=== PATIENT | female | born 1980 | race Caucasian/White ===

== ENCOUNTER 2023-10-23 17:01 | Observation (INO) ==
--- NOTE | 2023-10-23 17:07 | ED Triage Note ---
Date of Service October 23, 2023 Provider in Triage Author: Valdo Prabhakar History of Present Illness This patient was briefly evaluated while in triage. An abbreviated physical exam was performed. This patient is a 43-year-old Female who presents to the ED for evaluation via EMS from work for HTN 190/120 [place], jaw numb, weak, shaky - feels better now here 10/17 for similar symptoms - was diagnosed with MS at that visit on amlodipine, but only had a few doses saw neuro-concern for "ministrokes" rather than MS denies CP or SOB Physical Exam GENERAL: NAD CARDIOVASCULAR: RRR RESPIRATORY: CTA ABDOMEN: BS x 4. Nontender to palpation. NEURO: no facial droop, speech clear, no gross neuro deficits Initial orders for labs and / or imaging were placed and patient was placed in the waiting area until a bed is available. Please see further documentation for the full ED course.
--- NOTE | 2023-10-23 17:46 | XRay Report ---
XR chest 1V not portable CLINICAL HISTORY: Hypertension. COMPARISON STUDY: Chest radiograph April 11, 2012. FINDINGS: Lung volumes are normal. Lungs are clear. There is no pneumothorax or pleural effusion. Car diac size is normal. Mediastinal contours are normal. There is no evidence for pulmonary edema. IMPRESSION: No acute cardiopulmonary findings. ACT 112: Negative or not required by law. Electronically signed by: Grady Mishra M.D. 10/23/2023 5:44 PM
[2023-10-23 18:54] LABS: Basophils # (auto) 0.05 K/uL (0.00-0.20); Basophils % (auto) 0.5 %; Eosinophils # (auto) 0.06 K/uL (0.00-0.50); Eosinophils % (auto) 0.6 %; Hemoglobin 14.5 g/dl (12.0-16.0); Immature Granulocytes # (auto) 0.01 K/uL (0.01-0.20); Immature Granulocytes % (auto) 0.1 %; Lymphocytes # (auto) 1.85 K/uL (1.20-3.40); Mean Corpuscular Hemoglobin 30.5 pg (25.0-34.0); Mean Corpuscular Hgb Conc 35.4 g/dL (32.0-36.0); Mean Corpuscular Volume 86.3 fL (80.0-100.0); Mean Platelet Volume 10.1 fL (9.4-12.4); Monocytes # (auto) 0.69 K/uL (0.11-0.59); Monocytes % (auto) 7.5 %; Neutrophils % (auto) 71.3 %; Platelet Count 417 K/uL (130-400); RDW Coefficient of Variation 12.6 % (11.5-14.5); RDW Standard Deviation 39.8 fL (36.4-46.3); Red Blood Count 4.75 M/uL (4.20-5.40); White Blood Count 9.26 K/ul (4.8-10.8)
[2023-10-23 18:58] LABS: Pregnancy Test, Serum Negative (Negative)
[2023-10-23 19:00] LABS: Alanine Aminotransferase 23 U/L (7-52); Albumin Globulin Ratio 1.4 (0.9-2); Albumin Level 4.6 gm/dl (3.4-5.0); Alkaline Phosphatase 57 U/L (34-104); Anion Gap 10 (3-11); Aspartate Aminotransferase 17 U/L (13-39); BUN Creatinine Ratio 21.7 (10-20); Bilirubin,Total 0.8 mg/dl (0.2-1.0); Blood Urea Nitrogen 13 mg/dl (6-23); Calcium 9.5 mg/dl (8.6-10.3); Carbon Dioxide 20 mmol/L (21-32); Chloride 106 mmol/L (98-107); Est GFR (African American) 129.4 ml/min; Est GFR (Non-African American) 111.6 ml/min; Globulin 3.4 gm/dl (2.5-4.0); Glucose 91 mg/dl (70-99(Fasting)); Potassium 3.4 mmol/L (3.5-5.1); Sodium 136 mmol/L (136-145)
[2023-10-23 19:06] LABS: Troponin I High Sensitivity 6.4 pg/ml (0-14)
--- NOTE | 2023-10-23 19:06 | Emergency Department Note ---
Impression & Plan Numbness of jaw, Hypertension, Hypokalemia ED Provider Note NAME: OCTAVIA LAWLER AGE: 43 SEX: F : 1980 ARRIVES VIA: Ambulance INFORMANT: Patient, ED PROVIDER(S): Gamal Najera MD CHIEF COMPLAINT: Elevated blood pressure, jaw numbness MEDICAL DECISION MAKING: Patient presents due to concern for elevated blood pressure and jaw numbness. IV was established and blood work is obtained. Patient blood work fairly unremarkable with mild hypokalemia noted. After further discussion with the patient I did offer the patient and consider admission given the patient's persistent hypertension and recent neurologic symptoms. The patient is amenable to inpatient treatment at this time. The patient was ordered IV labetalol. I did speak the on-call hospitalist service and the patient was admitted by Dr. Monet. Discussion w/ other healthcare providers: Dr. Patrick inpatient medicine service Prior /Outside records reviewed: I reviewed a neurology visit from October 22, [address] Mcfadden. Patient was seen due to concern for right-sided numbness and hypertension. Differential diagnosis: Benign hypertension, hypertensive emergency, hypertensive emergency/urgency, salt intake, pheochromocytoma, electrolyte abnormality, renal disease as well as other etiologies were entertained. Diagnostics, as interpreted by me: ECG:Normal sinus rhythm, rate of 83, normal intervals, normal axis no ST elevations. No significant change from comparison October 17, 2023. Cardiac monitoring: An order was placed for continuous cardiac monitoring. The monitor shows a rate of 82 with sinus rhythm. Patient was placed on pulse oximetry Medical decision rules: None Imaging studies: I informally interpreted the patient's chest x-ray which does not show obvious pneumonia or pneumothorax with formal report to follow. HPI: Patient presents due to concern for elevated blood pressure and jaw numbness. IV was established and blood was obtained patient does not have any acute neurologic symptoms. Patient was recently seen for possible MS versus TIA and did have a follow-up with neurology yesterday and is scheduled for an LP on Saturday. Patient states that she was at work and felt some bilateral jaw numbness no chest pain or pressure no headache got really worried and concerned and called the ambulance to present for further evaluation treatment and was noted to be hypertensive. Patient states that she did begin taking amlodipine which was prescribed during her most recent ED visit in addition to right-sided numbness and was scheduled for follow-up with a neurologist which she did she yesterday. Patient was advised to increase her amlodipine from 5 to 10 mg. Patient does admit to feeling anxious. Patient denies any weakness. Patient states that she has had some mild residual numbness may be in her right foot since her most recent ED visit but no recent changes. Patient denies any falls or trauma. Patient denies any alcohol tobacco or drug use. PAST MEDICAL HISTORY: See Below PAST SURGICAL HISTORY: See Below SOCIAL HISTORY: See Below HOME MEDICATIONS: See Below ALLERGIES: See Below VITALS: See Below PHYSICAL EXAMINATION: GENERAL: NAD, non-toxic. EYE EXAM: Normal conjunctiva. PERRL, no anisocoria and EOM's grossly intact w/o pain. OROPHARYNX: Moist mucus membranes, grossly normal dentition. NECK: Supple, no nuchal rigidity, no adenopathy, non-tender. No signs of meningismus. FROM of the neck with good chin to chest and neck extension. No stridor. LUNGS: Clear to auscultation. Normal chest wall mechanics. HEART: NSR, no MRG. ABDOMEN: Abdomen soft, non-tender, no masses, no rebound or guarding. BACK: No CVA TTP. SKIN: No rashes and no bruising. UPPER EXTREMITIES: Upper extremities are grossly normal. LOWER EXTREMITIES: Grossly normal, no edema. NEURO EXAM: A&O x3, cranial nerves II-XII grossly intact, normal speech, moves all 4 extremities. Past Med/Surg History Medical History (Updated 10/26/23 @ 11:37 by Gamal Najera MD) Hypertension Surgical History H/O lithotripsy Previous section S/P tonsillectomy Family History Father , age 40 in a motor vehicle accident No problems noted. Mother No problems noted. Social History Smoking Status: Never smoker Tobacco Type: Cigarettes Age Started Using Tobacco: 16; Age Quit Using Tobacco: 30; Cigarettes Per Day: Very light smoker, on and off over this time; Do You Dip or Chew Tobacco: No; Hx Alcohol Use: No Hx Substance Use: No Preferred Language: Panamanian Communication Ability: Effective General Car Supervisor Yard Required: No Beliefs That Will Affect Care: None Current Living Situation: Family current occupational status: employed current occupation: Works at [employer] in the office Feels Safe at Home: Yes Assistive Devices: None Allergies Allergies Allergy/AdvReac Type Severity Reaction Status Date / Time nitrofurantoin AdvReac Mild FLU LIKE Verified 10/23/23 20:00 SYMPTOMS Home Meds Home Medications Medication Instructions Recorded Confirmed amlodipine 5 mg tablet 10 mg PO DAILY 10/23/23 10/25/23 Previous Rx's Medication Instructions Recorded aspirin 81 mg chewable tablet 81 mg PO DAILY 30 days #30 tabs 10/24/23 (Tello Chewable Low Dose Aspirin) lisinopril 10 mg tablet 10 mg PO BID 30 days #60 tabs 10/24/23 Results & Data (ED) Vital Signs Vital Signs - 24 hr 10/23/23 17:05 10/23/23 19:15 10/23/23 19:15 Temperature 36.6 C Temperature Source Temporal Artery Scan Pulse Rate 79 83 Pulse Rate [Apical] 84 Respiratory Rate 16 18 Respiratory Effort / Characteristics Non-Labored Spontaneous Non-Labored Spontaneous Respiratory Depth Normal Normal Respiratory Pattern Regular Blood Pressure 217/133 H Blood Pressure [Right Arm] 201/124 H Blood Pressure Mean 161 Blood Pressure Mean [Right Arm] 149 Blood Pressure Position [Right Arm] Lying Pulse Oximetry 99 97 Oxygen Delivery Method Room Air Room Air Sepsis Recent Fever Within 48 Hours No Sepsis New/Unexplained Change in Mental Status N/A Sepsis Action Taken by Nursing No Action Required 10/23/23 19:17 Temperature Temperature Source Pulse Rate Pulse Rate [Apical] Respiratory Rate Respiratory Effort / Characteristics Respiratory Depth Respiratory Pattern Blood Pressure Blood Pressure [Right Arm] Blood Pressure Mean Blood Pressure Mean [Right Arm] Blood Pressure Position [Right Arm] Pulse Oximetry 97 Oxygen Delivery Method Room Air Sepsis Recent Fever Within 48 Hours Sepsis New/Unexplained Change in Mental Status Sepsis Action Taken by Halfway Medications Current Medication List: was personally reviewed by me Laboratory Data Attestation: I reviewed the patient's lab results. 10/24/23 05:24 10/24/23 05:24 Lab Results 10/23/23 Range/Units Unknown WBC 9.26 (4.8-10.8) K/ul RBC 4.75 (4.20-5.40) M/uL Hgb 14.5 (12.0-16.0) g/dl Hct 41.0 (37.0-47.0) % MCV 86.3 (80.0-100.0) fL MCH 30.5 (25.0-34.0) pg MCHC 35.4 (32.0-36.0) g/dL RDW Std Deviation 39.8 (36.4-46.3) fL RDW Coeff of [place] 12.6 (11.5-14.5) % Plt Count 417 H (130-400) K/uL MPV 10.1 (9.4-12.4) fL Immature Gran % (Auto) 0.1 % Neut % (Auto) 71.3 % Lymph % (Auto) 20.0 % Brooks % (Auto) 7.5 % Eos % (Auto) 0.6 % Baso % (Auto) 0.5 % Neut # (Auto) 6.60 H (1.40-6.50) K/uL Lymph # (Auto) 1.85 (1.20-3.40) K/uL Brooks # (Auto) 0.69 H (0.11-0.59) K/uL Eos # (Auto) 0.06 (0.00-0.50) K/uL Baso # (Auto) 0.05 (0.00-0.20) K/uL Immature Gran # (Auto) 0.01 (0.01-0.20) K/uL Sodium 136 (136-145) mmol/L Potassium 3.4 L (3.5-5.1) mmol/L Chloride 106 (98-107) mmol/L Carbon Dioxide 20 L (21-32) mmol/L Anion Gap 10 (3-11) BUN 13 (6-23) mg/dl Creatinine 0.60 (0.6-1.2) mg/dl Est Cr Clr Drug Dosing Not Reportable Est GFR ( Amer) 129.4 ml/min Est GFR (Non-Af Amer) 111.6 ml/min BUN/Creatinine Ratio 21.7 H (10-20) Glucose 91 (70-99(Fasting)) mg/dl Calcium 9.5 (8.6-10.3) mg/dl Total Bilirubin 0.8 (0.2-1.0) mg/dl AST 17 (13-39) U/L ALT 23 (7-52) U/L Alkaline Phosphatase 57 (34-104) U/L Troponin I High Sens 6.4 (0-14) pg/ml Total Protein 8.0 (6.0-8.3) gm/dl Albumin 4.6 (3.4-5.0) gm/dl Globulin 3.4 (2.5-4.0) gm/dl Albumin/Globulin Ratio 1.4 (0.9-2) HCG, Qual Negative (Negative) Administered Medications Discontinued Medications Amlodipine Besylate (Amlodipine Besylate 5 Mg Tab) 5 mg PO BID KLARISSA Stop: 11/23/23 08:59 Last Admin: 10/24/23 07:47 Dose: 5 mg Documented By: DTT Influenza Virus Vaccine Quadrival (Influenza Virus Quadrivalent Vaccine (Iiv4) 0.5 Ml Syr) 0.5 ml IM .ONCE ONE Stop: 10/24/23 09:01 Last Admin: 10/24/23 16:00 Dose: 0.5 ml Documented By: DTT Labetalol HCl (Labetalol Hcl Iv 5 Mg/Ml 20ml) 10 mg IV NOW STA Stop: 10/23/23 20:37 Last Admin: 10/23/23 20:44 Dose: 10 mg Documented By: FLORENTINO Co-signed By: AMARI Lisinopril (Lisinopril 10 Mg Tab) 10 mg PO BID KLARISSA Stop: 11/23/23 08:59 Last Admin: 10/24/23 07:47 Dose: 10 mg Documented By: DTT Melatonin (Melatonin 3 Mg Tab) 3 mg PO HS PRN PRN Reason: Sleep Stop: 11/22/23 22:11 Last Admin: 10/24/23 01:13 Dose: 3 mg Documented By: FORD Potassium Chloride (Potassium Chloride Crtab 20 Meq Tabcr) 40 meq PO NOW STA Stop: 10/23/23 22:03 Last Admin: 10/23/23 22:26 Dose: 40 meq Documented By: FLORENTINO Potassium Chloride (Potassium Chloride Crtab 20 Meq Tabcr) 40 meq PO NOW STA Stop: 10/24/23 07:11 Last Admin: 10/24/23 07:46 Dose: 40 meq Documented By: DTT Imaging Data Radiologist's Impression: Chest X-Ray 10/23/23 17:07 XR chest 1V not portable CLINICAL HISTORY: Hypertension. COMPARISON STUDY: Chest radiograph April 11, 2012. FINDINGS: Lung volumes are normal. Lungs are clear. There is no pneumothorax or pleural effusion. Cardiac size is normal. Mediastinal contours are normal. There is no evidence for pulmonary edema. IMPRESSION: No acute cardiopulmonary findings. ACT 112: Negative or not required by law. Electronically signed by: Grady Mishra M.D. 10/23/2023 5:44 PM Discharge Plan Visit Data Chief Complaint: Hypertension ED Provider: Gamal Najera Discharge Problem: Numbness of jaw, Hypertension, Hypokalemia Patient Disposition: Home - Self-Care Condition: Good Discharge Instructions Interventions: ED Discharge Assessment Last Done: 10/23/23 23:39 Discharge Problem: Hypertension Qualifiers: Hypertension type: unspecified Qualified Code(s): I10 - Essential (primary) hypertension
[2023-10-23] MEDS ORDERED: LABETALOL HCL IV 5 MG/ML 20ML IV STA (20:36)
--- NOTE | 2023-10-23 20:39 | History & Physical Report ---
Date of Service October 23, 2023 Assessment & Plan (1) Hypertension: (2) Hypokalemia: (3) Numbness of jaw: (4) History of stroke: Plan Pt is a 43 yo female with a past medical history of HTN who presents to the hospital on 10/23/23 for jaw numbness and high BP. #HTN, uncontrolled - BPs on admission had been >200 systolic - given labetalol 10 and pt took her home second dose of 5 mg amlodipine - prn anti-HTN meds overnight - continue home amlodipine 5 mg BID - add lisinopril 10 mg BID tomorrow morning - in setting of hypokalemia, will check renin/aldosterone - pt is to discontinue her OCP #Hypokalemia - K 3.4, - will replete and check am lab #Numbness of jaw - symptom is basically resolved at this point - will defer MRI, as pt has known stroke last week and MRI will be unlikely to change plan at this time #Hx stroke - head MRI 10/17/23; focus of restricted diffusion lateral to the left thalamus can be associated with demyelinating plaque or acute infarct - saw neuro 10/22/23; small acute left thalamic stroke with old small vessel ischemic disease, but recommend LP to exclude demyelinating disease - pt not yet started aspirin, advised to start after LP done - coordinate with neurology while here as may be best to do LP while pt admitted - as it is unusual for someone with no remarkable hx otherwise to have a stroke, will do hypercoagulable workup as well VTE Ppx: OOB Dispo: PCU/tele IVF: none Extra lines, drains, etc: none History of Present Illness Primary Care Provider: Andrae Montejo, DO Pt is a 43 yo female with a past medical history of HTN who presents to the hospital on 10/23/23 for jaw numbness and high BP. Pt states that she was initially seen last week on for R sided leg numbness that later progressed to R face and arm numbness and a foggy sensation. She states she was seen in the ED and was noted to have a high BP at that time when otherwise her BPs had been normal or low. She states they told her then that she had MS and that she became very anxious after and she was discharged on amlodipine. She states she remained anxious for a few days and did not take the amlodipine. She states she saw neurology yesterday who advised her that she had a stroke and MS was less likely so they recommend an LP. She states they also advised she take 10 mg amlodipine instead of 5mg. Today, she states she felt "weird." She states she had an intense frontal headache followed by numbness of her jaw and felt like her heart was racing. EMS were called and she states that told her that her BP was very high. No chest pain or SOB. She states the numbness has now gone but she knows her BP is high and since she had a stroke recently she is agreeable to stay for treatment, but otherwise is feeling fine. No family hx of [place] or stroke. No recent illnesses. No drug abuse hx. Allergies Allergy/AdvReac Type Severity Reaction Status Date / Time nitrofurantoin AdvReac Mild FLU LIKE Verified 10/23/23 20:00 SYMPTOMS Home Medications Medication Instructions Recorded Confirmed Type norethindrone 1.5 mg-ethinyl 1 tab PO DAILY 10/17/23 10/23/23 History estradiol 30 mcg(21)/iron 75 mg(7) tablet (Alla Fe 1.5/30 (28)) amlodipine 5 mg tablet 10 mg PO DAILY 10/23/23 10/23/23 History lisinopril 5 mg tablet 5 mg PO DAILY #30 tabs 10/23/23 Rx Past Med/Surg History Surgical History H/O lithotripsy Previous section S/P tonsillectomy Family History Father No problems noted. Mother No problems noted. Social History Smoking Status: Unknown if ever smoked Tobacco Type: Cigarettes Age Started Using Tobacco: 16; Age Quit Using Tobacco: 30; Cigarettes Per Day: Very light smoker, on and off over this time; Hx Alcohol Use: Yes Alcohol Intake Frequency: 2-3 x/Week Preferred Language: Egyptian Current Living Situation: Family current occupational status: employed current occupation: Works at [employer] in the office Feels Safe at Home: Yes Review of Systems Review of Systems: Constitutional: denies fever, chills, Cardio: denies chest pain, palpitations Resp: denies shortness of breath, GI: denies abdominal pain, nausea, vomiting, Physical Exam Physical Exam: General: Alert and oriented, no acute distress, HEENT: Normocephalic, moist oral mucosa, Cardio: Regular rate and rhythm, no murmur, Resp: Lungs clear to auscultation b/l, no wheezes or rhonchi, Skin: Warm, pink, dry, Psych: Mood-affect congruence. Results & Data Results & Data Vital Signs (Past 12 Hours) Vital Signs Temp Pulse Pulse Resp BP BP Pulse Ox 10/23/23 19:17 97 10/23/23 19:15 83 10/23/23 19:15 84 18 201/124 H 97 10/23/23 17:05 36.6 C 79 16 217/133 H 99 O2 Del Method 10/23/23 19:17 Room Air 10/23/23 19:15 10/23/23 19:15 Room Air 10/23/23 17:05 Room Air Supervising Physician Co-Signing Physician Notes Attending addendum: I have physically seen this patient, have supervised the medical residents activities, and agree with the H&P unless as otherwise noted. Assessment and Plan: Uncontrolled hypertension/left thalamic CVA 10-16-2023-- Initial blood pressure 217/133 upon arrival Blood pressure has been elevated since initial outpatient workup on 10-16-2023 Continue amlodipine 5 mg p.o. twice daily, did get a dose this evening Add lisinopril 10 mg p.o. twice daily Patient did get improvement with labetalol 10 mg IV dose and hydralazine 10 mg IV while in the ED Patient reports that she is scheduled for a LP on Saturday, 10/25 Consult neurology to see if can be coordinated to get LP done while in hospital Order arterial hypercoagulable workup. Discontinue OCPs Aspirin 81 mg daily to begin after LP Hypokalemia- Potassium 3.4 on admission Magnesium levels pending Replete with Klor-Con 40 mill equivalents p.o. now Check renin and aldosterone levels Resident Activity Tracking Resident Involvement: Resident Care Provided Care Provided: Adult Hospital Medicine (1) Hypertension Hypertension type: unspecified Qualified Code(s): I10 - Essential (primary) hypertension
[2023-10-23 20:57] LABS: Appearance Urine Clear (Clear); Bilirubin Urine Negative (Negative); Blood Urine Negative (Negative); Color Urine Yellow; Glucose Urine UA Negative (Negative); Ketones Urine Negative (Negative); Leukocyte Esterase Urine Negative (Negative); Nitrite Urine Negative (Negative); Protein Urine Negative (Negative); Specific Gravity Urine 1.008 (1.000-1.030); Urobilinogen Urine Negative (Negative)
[2023-10-23] MEDS ORDERED: POTASSIUM CHLORIDE CRTAB 20 MEQ TABCR PO STA (22:02)
[2023-10-23] MEDS ORDERED: MELATONIN 3 MG TAB PO PRN (22:12)
[2023-10-23] MEDS ORDERED: LORazepam 0.5 MG in SYRINGE 0.25 ML IV PRN (22:12)
[2023-10-23 22:44] LABS: Magnesium 2.1 mg/dl (1.7-2.4)
[2023-10-23] MEDS ORDERED: METOPROLOL TARTRATE 1 MG/ML VIAL IV PRN (23:40)
[2023-10-23] MEDS ORDERED: ACETAMINOPHEN 325 MG TAB PO PRN (23:40)
[2023-10-23] MEDS ORDERED: ONDANSETRON INJ 2 MG/ML 2 ML VIAL IV PRN (23:40)
[2023-10-23] MEDS ORDERED: POLYETHYLENE (MIRALAX) 17 GM PACK PO PRN (23:40)
[2023-10-23] MEDS ORDERED: hydrALAZINE HCL 20 MG/ML VIAL IV PRN (23:40)
--- NOTE | 2023-10-24 05:43 | Billing Data ---
Date of Service October 24, 2023 Coding Level of Care Code 86699 INT INP/OBS CARE
[2023-10-24 06:18] LABS: Albumin Globulin Ratio 1.3 (0.9-2); Albumin Level 3.8 gm/dl (3.4-5.0); BUN Creatinine Ratio 17.6 (10-20); Creatinine Clr Calc Pharmacy 107.6 ml/min; Est GFR (African American) 124.2 ml/min; Est GFR (Non-African American) 107.1 ml/min; Globulin 2.9 gm/dl (2.5-4.0); Potassium 3.3 mmol/L (3.5-5.1); Total Protein 6.7 gm/dl (6.0-8.3)
[2023-10-24 06:19] LABS: Basophils # (auto) 0.03 K/uL (0.00-0.20); Basophils % (auto) 0.5 %; Eosinophils # (auto) 0.06 K/uL (0.00-0.50); Hematocrit (blood only) 38.8 % (37.0-47.0); Hemoglobin 12.9 g/dl (12.0-16.0); Immature Granulocytes # (auto) 0.02 K/uL (0.01-0.20); Immature Granulocytes % (auto) 0.3 %; Lymphocytes # (auto) 1.42 K/uL (1.20-3.40); Lymphocytes % (auto) 23.8 %; Mean Corpuscular Hemoglobin 29.5 pg (25.0-34.0); Mean Corpuscular Hgb Conc 33.2 g/dL (32.0-36.0); Mean Corpuscular Volume 88.8 fL (80.0-100.0); Mean Platelet Volume 9.9 fL (9.4-12.4); Monocytes % (auto) 8.4 %; Neutrophils # (auto) 3.94 K/uL (1.40-6.50); Platelet Count 402 K/uL (130-400); RDW Coefficient of Variation 12.5 % (11.5-14.5); RDW Standard Deviation 40.8 fL (36.4-46.3); Red Blood Count 4.37 M/uL (4.20-5.40); White Blood Count 5.97 K/ul (4.8-10.8)
[2023-10-24] MEDS ORDERED: POTASSIUM CHLORIDE CRTAB 20 MEQ TABCR PO STA (07:10)
[2023-10-24 07:44] VITALS: O2SAT 98
[2023-10-24] MEDS ORDERED: lisinopril 10 MG TAB PO SCH (09:00)
[2023-10-24] MEDS ORDERED: amLODIPine BESYLATE 5 MG TAB PO SCH (09:00)
[2023-10-24] MEDS ORDERED: INFLUENZA VIRUS QUADRIVALENT VACCINE (IIV4) 0.5 ML SYR IM ONE (09:00)
--- NOTE | 2023-10-24 10:25 | Neurology Consultation ---
Date of Consultation October 24, 2023 Assessment & Plan (1) History of stroke: (2) Numbness of jaw: History of Present Illness Attending Physician: Alta Carr MD History of Present Illness pt with jaw numbness that is now resolved. pt seen Dr. bravo in neurology clinic few days ago for mri brain lesion and work up. pt did have left thalamic ischemic stroke. this morning feeling well, no more numbness. BP much improved and back to baseline. admission HPI: Pt is a 43 yo female with a past medical history of HTN who presents to the hospital on 10/23/23 for jaw numbness and high BP. Pt states that she was initially seen last week on for R sided leg numbness that later progressed to R face and arm numbness and a foggy sensation. She states she was seen in the ED and was noted to have a high BP at that time when otherwise her BPs had been normal or low. She states they told her then that she had MS and that she became very anxious after and she was discharged on amlodipine. She states she remained anxious for a few days and did not take the amlodipine. She states she saw neurology yesterday who advised her that she had a stroke and MS was less likely so they recommend an LP. She states they also advised she take 10 mg amlodipine instead of 5mg. Today, she states she felt "weird." She states she had an intense frontal headache followed by numbness of her jaw and felt like her heart was racing. EMS were called and she states that told her that her BP was very high. No chest pain or SOB. She states the numbness has now gone but she knows her BP is high and since she had a stroke recently she is agreeable to stay for treatment, but otherwise is feeling fine. No family hx of [place] or stroke. No recent illnesses. No drug abuse hx. Allergies Allergy/AdvReac Type Severity Reaction Status Date / Time nitrofurantoin AdvReac Mild FLU LIKE Verified 10/23/23 20:00 SYMPTOMS Home Medications Medication Instructions Recorded Confirmed Type norethindrone 1.5 mg-ethinyl 1 tab PO DAILY 10/17/23 10/23/23 History estradiol 30 mcg(21)/iron 75 mg(7) tablet (Alla Fe 1.5/30 (28)) amlodipine 5 mg tablet 10 mg PO DAILY 10/23/23 10/23/23 History lisinopril 5 mg tablet 5 mg PO DAILY #30 tabs 10/23/23 Rx Patient History Surgical History H/O lithotripsy Previous section S/P tonsillectomy Family History Father No problems noted. Mother No problems noted. Social History Smoking Status: Never smoker Tobacco Type: Cigarettes Age Started Using Tobacco: 16; Age Quit Using Tobacco: 30; Cigarettes Per Day: Very light smoker, on and off over this time; Do You Dip or Chew Tobacco: No; Hx Alcohol Use: No Hx Substance Use: No Preferred Language: Comoran Communication Ability: Effective Sewer Head Required: No Beliefs That Will Affect Care: None Current Living Situation: Family current occupational status: employed current occupation: Works at [employer] in the office Other Information That Helps Us Care for You: No Feels Safe at Home: Yes Safety Concerns: Feels Safe At This Time Assistive Devices: None Exam (Neuro) Physical Exam: HEENT: normocephalic Neuro: Mental: AOx4, fluent speech, normal comprehension, no apraxia, no L/R confusion, no neglect CN: PERRL, Full EOM, symmetric face, intact sensation t/o face, midline T/U/P, 5/5 SCM/traps. Motor: No abnormal movements, normal tone and bulk, 5/5 t/o bilaterally Sens: intact to touch b/l grossly Coord: intact FNT b/l DTR: 2+ sym b/l Impression: 43 yo female with recent left thalamic ischemic stroke with now resolved facial paresthesia in setting of anxiety and HTN urgency. currently doing well. reviewed her mri brain, I agree that it is not likely she has MS but given the size of lesion, ok to work up for demyelinating disorder. Recommendations: do get the LP as planned for MS work up. she can go home after that. f/u with Dr. Bravo as planned. reassured pt. call again if new question. Chart reviewed I have spent more than 50% educating patient about potential diagnosis and neurological evaluation and coordinating care with patient's treatment team. Total time spent (including chart review and coordination of care): 60 min (this includes chart review). Results & Data Vital Signs (Past 12 Hours) Vital Signs Temp Pulse Pulse Resp BP Pulse Ox O2 Del Method 10/24/23 09:00 60 10/24/23 07:42 62 20 135/92 98 Room Air 10/24/23 03:51 37.1 C 62 17 119/81 99 Room Air 10/23/23 23:40 36.8 C 76 16 152/96 H 98 Room Air PG Care Time/CCT Total # of Minutes Spent Total Time Spent with Patient: Total time spent is greater than 50% in coordination of care (as documented) at patient's floor/unit and/or counseling patient: Coding Level of Care Code 51143 IN/OBS CONSULT LVL 4,60M Diagnoses History of stroke Z86.73 Numbness of jaw R20.0
--- NOTE | 2023-10-24 10:31 | Medical Student Progress Note ---
Date of Service October 24, 2023 Assessment & Plan (1) Hypertension: Hypertension type: unspecified Qualified Code(s): I10 - Essential (primary) hypertension (2) Hypokalemia: (3) Numbness of jaw: (4) History of stroke: Plan Pt is a 43 yo female with a past medical history of HTN who presents to the hospital on 10/23/23 for jaw numbness and high BP. #HTN, uncontrolled - BPs on admission had been >200 systolic - given labetalol 10 and pt took her home second dose of 5 mg amlodipine - prn anti-HTN meds overnight - continue home amlodipine 5 mg BID - add lisinopril 10 mg BID tomorrow morning - in setting of hypokalemia, will check renin/aldosterone - pt is to discontinue her OCP #Hypokalemia - K 3.3, down from 3.4 on 10/23 #Numbness of jaw - symptom is resolved at this point - will defer MRI, as pt has known stroke last week and MRI will be unlikely to change plan at this time #Hx stroke-like symptoms - head MRI 10/17/23; focus of restricted diffusion lateral to the left thalamus can be associated with demyelinating plaque or acute infarct - saw neuro 10/22/23; small acute left thalamic stroke with old small vessel ischemic disease, but recommend LP to exclude demyelinating disease - pt not yet started aspirin, advised to start after LP done - coordinate with neurology while here as may be best to do LP while pt admitted - [place] PTT screen pending VTE Ppx: OOB Dispo: PCU/tele IVF: none Extra lines, drains, etc: none Admission and Anticipated Discharge Date Admission Date: October 23, 2023 Subjective 43 yo female with a past medical history of HTN presents to the hospital for jaw numbness and high BP. Patient was initially seen last week on 10/17 for R sided leg numbness that later progressed to R face and arm numbness and a foggy sensation. She was see in the ED and was was noted to have a high BP at that time when otherwise her BPs had been normal or low. CTA showed multifocal narrowing within distal bilateral manager financial reporting and MRI shows foci of T2 hypersensitivity suggestive of infarct or demyelinating disease. Neurology physician training consultant, Dr Rojas, reviewed the patient's history and imaging and said it was most likely MS. She was discharged with 5 mg of amlodipine for the hypertension. She followed-up with neurology outpatient on 10/[address] Mcfadden who advised her that it was likely a stroke and MS was less likely, based on lack of demyelinating symptoms and the significant hypertension, so they recommended an LP and advised she take 10 mg of amlodipine instead of 5 mg. Yesterday, she was feeling "weird" at work with an intense headache, lightheadedness, numbness in jaw, and racing heart. EMS responded and took her to the ED due to high blood pressure. Her BP in the ED was 217/133. Today, she reports no symptoms. She denies headache, dizziness, lightheadedness, heart palpitations, numbness or tingling. She also denies any history of neurological symptoms, other than occasional headaches. She notes she had extreme fatigue for 6 months a few years ago, but was found to have iron deficiency and iron supplementation resolved her fatigue. She also notes she had frequent UTIs and kidney stones years ago, but not recently. She denies history of numbness or tingling, dizziness, bladder or bowel dysfunction, double vision, blurry vision, or trouble speaking. No family hx of GA or stroke. No recent illnesses. No drug abuse hx. Review of Systems Review of Systems: Constitutional: denies fever, chills Cardio: denies chest pain, palpitations Resp: denies shortness of breath GI: denies abdominal pain, nausea, vomiting. Neuro: denies numbness or tingling, double vision or blurry vision, dizziness, or loss of bowel or urinary control. Physical Exam Physical Exam: General: Alert and oriented, no acute distress, HEENT: MICHAELA, moist oral mucosa Cardio: Regular rate and rhythm, no murmur, rubs or gallop. Resp: Lungs clear to auscultation b/l, no wheezes or rhonchi, Skin: Warm, pink, dry, Psych: Normal mood and affect. Neuro: Cranial nerves 2-12 are intact. Strength is 5/5 in biceps, triceps, wrist flexors/extensors, quadriceps, hamstrings, and ankle dorsiflexors and plantar flexors. Reflexes 2/4 in bicpes, triceps, brachioradialis, patellar, and achilles. Babinski is absent. Normal coordination and gait. Results & Data Vital Signs (Past 12 Hours) Vital Signs Temp Pulse Pulse Resp BP BP Pulse Ox 10/24/23 07:42 62 20 135/92 98 10/24/23 03:51 37.1 C 62 17 119/81 99 10/23/23 23:40 36.8 C 76 16 152/96 H 98 10/23/23 21:43 75 139/97 10/23/23 21:41 75 18 139/97 97 10/23/23 20:42 70 18 178/116 H 97 O2 Del Method 10/24/23 07:42 Room Air 10/24/23 03:51 Room Air 10/23/23 23:40 Room Air 10/23/23 21:43 10/23/23 21:41 Room Air 10/23/23 20:42 Room Air
[2023-10-24 11:54] VITALS: TEMP 98.1
[2023-10-24 12:36] LABS: Chol HDL Ratio 4.5 (0-5)
--- NOTE | 2023-10-24 12:43 | Electrocardiogram Report ---
Test Reason : Blood Pressure : / mmHG Vent. Rate : 083 BPM Atrial Rate : 083 BPM P-R Int : 132 ms QRS Dur : 092 ms QT Int : 380 ms P-R-T Axes : 068 038 054 degrees QTc Int : 446 ms Normal sinus rhythm with sinus arrhythmia Minimal voltage criteria for LVH, may be normal variant ( Luis product ) Borderline ECG When compared with ECG of 17-OCT-2023 19:51, No significant change was found Confirmed by Carlos Davidson ([id number]) on 10/24/2023 12:42:53 PM Referred By: REFERRED SELF Confirmed By:Carlos Davidson
[2023-10-24 12:49] LABS: Thyroid Stimulating Hormone 2.24 uIu/ml (0.300-4.500)
[2023-10-24 13:02] LABS: Lyme Ab IgG w/WB Rflx Negative (Negative)
[2023-10-24 13:11] LABS: Lyme Ab IgM w/WB Rflx Equivocal (Negative)
[2023-10-24 15:05] LABS: Ferritin 14.3 ng/ml (8-388)
[2023-10-24 15:10] LABS: Total Protein CSF 48.7 mg/dl (15-45)
[2023-10-24 15:33] VITALS: BP 138/90; PULSE 71; RESP 18
--- NOTE | 2023-10-24 15:35 | Fluoroscopy Report ---
LUMBAR PUNCTURE UNDER FLUOROSCOPY CLINICAL HISTORY: Evaluate for MS PROCEDURE: Procedure and risks were explained. Informed consent was obtained. A final timeout was com pleted. Patient was placed prone on the fluoroscopic examination table. The lower lumbar region was p repped and draped in sterile fashion. 1% lidocaine was utilized for skin anesthesia. Utilizing fluoroscopic guidance, a 22-gauge spinal needle was advanced into the intrathecal space at the L2-3 level. 2 permanent spot images were obtained. Opening pressure was measured at 14.5 cm H2O. Approximately 8 mL of clear CSF fluid was removed and sent to lab for analysis. The patient tolerated the procedure well. Vital signs will be monitored prior to discharge. Total fluoroscopy time 21 seco nds. DAP is 3.91 mcGy/m2. IMPRESSION: Lumbar puncture as above. Performed, dictated, and signed by Rodolfo Killian PA-C; to be co-signed by Dr. Grady Mishra. Electronically signed by: Grady Mishra M.D. 10/24/2023 5:05 PM
--- NOTE | 2023-10-24 15:50 | Discharge Summary ---
Date of Service October 24, 2023 Admission HPI Per Admitting Provider Pt is a 43 yo female with a past medical history of HTN who presents to the hospital on 10/23/23 for jaw numbness and high BP. Pt states that she was initially seen last week on for R sided leg numbness that later progressed to R face and arm numbness and a foggy sensation. She states she was seen in the ED and was noted to have a high BP at that time when otherwise her BPs had been normal or low. She states they told her then that she had MS and that she became very anxious after and she was discharged on amlodipine. She states she remained anxious for a few days and did not take the amlodipine. She states she saw neurology yesterday who advised her that she had a stroke and MS was less likely so they recommend an LP. She states they also advised she take 10 mg amlodipine instead of 5mg. Today, she states she felt "weird." She states she had an intense frontal headache followed by numbness of her jaw and felt like her heart was racing. EMS were called and she states that told her that her BP was very high. No chest pain or SOB. She states the numbness has now gone but she knows her BP is high and since she had a stroke recently she is agreeable to stay for treatment, but otherwise is feeling fine. No family hx of MD or stroke. No recent illnesses. No drug abuse hx. Admission Exam Per Admitting Provider General: Alert and oriented, no acute distress, HEENT: Normocephalic, moist oral mucosa, Cardio: Regular rate and rhythm, no murmur, Resp: Lungs clear to auscultation b/l, no wheezes or rhonchi, Skin: Warm, pink, dry, Psych: Mood-affect congruence. Principal Diagnosis see attending attestation Discharge Exam Constitutional WD/WN, vitals as above Respiratory normal respiratory effort, lungs clear to auscultation Cardiovascular RRR, no murmur, no edema Gastrointestinal (Abdomen) normal bowel sounds, soft, nontender, no hepatosplenomegaly Neurologic PERRL, EOMI, accommodation nl, no face palsy, no dysarthria normal touch/pain/proprioception, CN's II-XI intact bilaterally and moves all extremities Speech / Cognition: normal speech Discharge Data Allergies Allergy/AdvReac Type Severity Reaction Status Date / Time nitrofurantoin AdvReac Mild FLU LIKE Verified 10/23/23 20:00 SYMPTOMS Consultations 10/23/23 20:30 ED Decision to Admit Stat 10/23/23 22:04 Consult Neurology Routine Ordered Studies Microbiology 10/24/23 Unknown Cerebral Spinal Fluid Gram Stain - Pending 10/24/23 Unknown Cerebral Spinal Fluid CSF Culture - Pending Labs 10/23/23 10/23/23 10/24/23 20:46 Unknown 05:24 WBC 9.26 5.97 RBC 4.75 4.37 Hgb 14.5 12.9 Hct 41.0 38.8 MCV 86.3 88.8 MCH 30.5 29.5 MCHC 35.4 33.2 RDW Std Deviation 39.8 40.8 RDW Coeff of [place] 12.6 12.5 Plt Count 417 H 402 H MPV 10.1 9.9 Immature Gran % (Auto) 0.1 0.3 Neut % (Auto) 71.3 66.0 Lymph % (Auto) 20.0 23.8 Robeson % (Auto) 7.5 8.4 Eos % (Auto) 0.6 1.0 Baso % (Auto) 0.5 0.5 Neut # (Auto) 6.60 H 3.94 Lymph # (Auto) 1.85 1.42 Rob[place] # (Auto) 0.69 H 0.50 Eos # (Auto) 0.06 0.06 Baso # (Auto) 0.05 0.03 Immature Gran # (Auto) 0.01 0.02 ESR 19 Sodium 136 136 Potassium 3.4 L 3.3 L Chloride 106 107 Carbon Dioxide 20 L 21 Anion Gap 10 8 BUN 13 12 Creatinine 0.60 0.68 Est Cr Clr Drug Dosing Not Reportable 107.6 Est GFR ( Amer) 129.4 124.2 Est GFR (Non-Af Amer) 111.6 107.1 BUN/Creatinine Ratio 21.7 H 17.6 Glucose 91 128 H Calcium 9.5 9.0 Magnesium 2.1 Iron Unsaturated IBC Transferrin Ferritin Total Bilirubin 0.8 1.0 AST 17 13 ALT 23 20 Alkaline Phosphatase 57 49 Troponin I High Sens 6.4 Total Protein 8.0 6.7 Albumin 4.6 3.8 Globulin 3.4 2.9 Albumin/Globulin Ratio 1.4 1.3 Triglycerides Cholesterol LDL Cholesterol, Calc VLDL Cholesterol, Calc HDL Cholesterol Cholesterol/HDL Ratio Vitamin B12 25-OH Vitamin D Total TSH HCG, Qual Negative Urine Color Yellow Urine Appearance Clear Urine pH 7.0 Ur Specific Kiron 1.008 Urine Protein Negative Urine Glucose (UA) Negative Urine Ketones Negative Urine Blood Negative Urine Nitrite Negative Urine Bilirubin Negative Urine Urobilinogen Negative Ur Leukocyte Esterase Negative Fluid Comment CSF Glucose CSF Total Protein CSF Albumin CSF IgG CSF IgG Index CSF IgG Synthesis Rate CSF Myelin Basic Protein CSF IgG Oligoclonal Bnd IgG Albumin (JAN) Lyme Disease IgG Ab Lyme Disease IgM Ab 10/24/23 10/24/23 11:43 Unknown WBC RBC Hgb Hct MCV MCH MCHC RDW Std Deviation RDW Coeff of [place] Plt Count MPV Immature Gran % (Auto) Neut % (Auto) Lymph % (Auto) Robeson % (Auto) Eos % (Auto) Baso % (Auto) Neut # (Auto) Lymph # (Auto) Robeson # (Auto) Eos # (Auto) Baso # (Auto) Immature Gran # (Auto) ESR Sodium Potassium Chloride Carbon Dioxide Anion Gap BUN Creatinine Est Cr Clr Drug Dosing Est GFR ( Amer) Est GFR (Non-Af Amer) BUN/Creatinine Ratio Glucose Calcium Magnesium Iron 130 Unsaturated IBC 316 Transferrin 342 Ferritin 14.3 Total Bilirubin AST ALT Alkaline Phosphatase Troponin I High Sens Total Protein Albumin Globulin Albumin/Globulin Ratio Triglycerides 124 Cholesterol 216 H LDL Cholesterol, Calc 143 VLDL Cholesterol, Calc 25 HDL Cholesterol 48 Cholesterol/HDL Ratio 4.5 Vitamin B12 259 25-OH Vitamin D Total 18.9 L TSH 2.240 HCG, Qual Urine Color Urine Appearance Urine pH Ur Specific Kiron Urine Protein Urine Glucose (UA) Urine Ketones Urine Blood Urine Nitrite Urine Bilirubin Urine Urobilinogen Ur Leukocyte Esterase Fluid Comment CSF Glucose 60 CSF Total Protein 48.7 H CSF Albumin Cancelled CSF IgG Cancelled CSF IgG Index Cancelled CSF IgG Synthesis Rate Cancelled CSF Myelin Basic Protein Cancelled CSF IgG Oligoclonal Bnd Cancelled IgG Cancelled Albumin (JAN) Cancelled Lyme Disease IgG Ab Negative Lyme Disease IgM Ab Equivocal A 10/24/23 11:12 IR lumbar puncture diagnostic Routine Chest X-Ray 10/23/23 17:07 XR chest 1V not portable CLINICAL HISTORY: Hypertension. COMPARISON STUDY: Chest radiograph April 11, 2012. FINDINGS: Lung volumes are normal. Lungs are clear. There is no pneumothorax or pleural effusion. Cardiac size is normal. Mediastinal contours are normal. There is no evidence for pulmonary edema. IMPRESSION: No acute cardiopulmonary findings. ACT 112: Negative or not required by law. Electronically signed by: Grady Mishra M.D. 10/23/2023 5:44 PM Lumbar Puncture 10/24/23 11:12 LUMBAR PUNCTURE UNDER FLUOROSCOPY CLINICAL HISTORY: Evaluate for MS PROCEDURE: Procedure and risks were explained. Informed consent was obtained. A final timeout was completed. Patient was placed prone on the fluoroscopic exam ination table. The lower lumbar region was prepped and draped in sterile fashion. 1% lidocaine was utilized for skin anesthesia. Utilizing fluoroscopic guidance, a 22-gauge spinal needle was advanced into the intrathecal space at the L2-3 level. 2 permanent spot images were obtained. Opening pressure was measured at 14.5 cm H2O. Approximately 8 mL of clear CSF fluid was removed and sent to lab for analysis. The patient tolerated the procedure well. Vital signs will be monitored prior to discharge. Total fluoroscopy time 21 seconds. DAP is 3.91 mcGy/m2. IMPRESSION: Lumbar puncture as above. Performed, dictated, and signed by Rodolfo Killian PA-C; to be co-signed by Dr. Grady Mishra. Hospital Course (1) History of stroke: (2) Hypokalemia: (3) Hypertension: (4) Demyelinating disease: (5) Cerebrovascular accident (CVA) of left thalamus: Plan Pt is a 43 yo female with a past medical history of HTN who presents to the hospital on 10/23/23 for jaw numbness and high BP. HTN urgency - BPs on admission had been >200 systolic - She was feeling "weird" at work with an intense headache, lightheadedness, numbness in jaw, and racing heart - Received IV medication to bring BP down. - continue home amlodipine 5 mg BID - lisinopril 10 mg BID was started - in setting of hypokalemia renin/aldosterone levels have been sent. To be followed up. left thalamic ischemic stroke 10-16-2023 / rule out MS - last week on (10/17) for R sided leg numbness that later progressed to R face and arm numbness and a foggy sensation - head MRI 10/17/23; focus of restricted diffusion lateral to the left thalamus can be associated with demyelinating plaque or acute infarct - 10/22/23; Neurology impression - small acute left thalamic stroke with old small vessel ischemic disease, but recommend LP to exclude demyelinating disease - Lumbar puncture was done while admitted, she has a follow up with Neurology outpatient - She was started on Aspirin - Reconsider starting atorvastatin - pt is to discontinue her OCP - Hypercoagulable panel sent - follow results. Hypokalemia - K. 3.3, Replaced, follow with BMP outpatient Total Time Total Time Spent Total Time Spent (In Minutes): see attending attestation Discharge Plan Discharge Items Patient Disposition: Home - Self-Care Reason For Visit: UNCONTROLLED HTN Discharge Diagnosis: Hypertensive urgency Condition on Discharge: Good Activity: Resume your previous activity Non-emergency contact: Primary Care Provider Call non-emergency contact if: you have any medication questions, your symptoms worsen, your pain is unusual for you and you have a fever Follow-up/Referrals: Andrae Montejo, [Primary Care Provider] - 10/30/23 2:00 pm (With Halle BLANK) Diet: Regular Addtl Attending Provider Instructions: You were here due to Hypertension urgency, this is an acute severe elevation in blood pressure. This resolved after treatment with antihypertensive medication. A new medication was added, called lisinopril 10 mg, you will take this twice a day. It's very important to follow up with you primary care doctor and keep monitoring your Blood pressure at home. Continue taking Aspirin 81 mg as well Due to findings on the MRI and concerns of demyelinating disease (Multiple sclerosis), neurology was consulted and decide to do what is called Lumbar Puncture. You will follow results on your neurology appointment on November 13. While you were here we run the lab workup that Neurology had ordered. Only one wasn't able to run because you need to be fasting to get the results. The test is call Lipid panel. You need to get this done before your next visit. Follow-up appointments: Make a follow-up appointment with your PCP within the next week. It is very important that you follow up with them shortly after discharge from the [facility]. Keep all your follow-up appointments as already scheduled. If you cannot make an appointment, notify your provider. Medications: Your medication list has been reviewed and reconciled upon discharge to ensure accuracy and continuity of care. An updated list of all your medications is included with your hospital discharge paperwork. Please review this list closely, and make note of any changes. Take your medications as instructed; do not skip a dose of your medicines. Make sure all of your doctors know every medicine you are taking (including qeyc-btq-xwldjct medicines, vitamins, and supplements). Call your primary care provider before taking any new medicines (including oors-iuk-dfyocwh medicines, vitamins, and supplements), because some of these may interact with your current medications, or may make your symptoms worse. Tell your primary care provider if you cannot afford your medications. CONTACT YOUR PRIMARY CARE PROVIDER if you experience any of the following: Difficulty following your treatment plan, or difficulty taking medications CALL 911 OR GO TO THE EMERGENCY DEPARTMENT if you experience any of the following: Sudden, severe abdominal pain or nausea/vomiting Severe chest pain, or chest pain that radiates (moves) to your jaw or arm Sudden, severe shortness of breath or difficulty breathing Thank you for allowing us to participate in your care. Pending Studies at Discharge: No Stand-Alone Forms: [facility], Smoking Cessation Medications and DC Order Prescriptions: New lisinopril 10 mg tablet 10 mg PO BID 30 Days Qty: 60 0RF aspirin [Tello Chewable Aspirin] 81 mg tablet,chewable 81 mg PO DAILY 30 Days Qty: 30 0RF Continued norethindrone-e.estradiol-iron [Alla Fe 1.5/30 (28)] 1.5 mg-30 mcg (21)/75 mg (7) tablet 1 tab PO DAILY amlodipine 5 mg tablet 10 mg PO DAILY Rx Instructions: JUST INCREASED DOSE ON 10/22/23. Discharge Orders: Discharge Order (Routine); Ordered 10/24/23 Ordered By: Bryan Dee Admission Data Admit Date/Time: 10/23/23 20:38 Attending Provider: Alta Carr Admit Provider: Cheyenne Liao Primary Care Provider: Andrae Montejo Other Providers: Keaton Rodriguez; Favian Canseco Other Interventions: Discharge Summary Assessment (RN) Last Done: 10/24/23 16:07 Supervising Physician Co-Signing Physician Notes Attending Physician Supervision Note: I independently interviewed and examined the patient and verified the licona history and physical, reviewed labs and image studies and agree with findings and care plan noted above.
[2023-10-24 15:52] LABS: Appearance CSF Clear; CSF Count Tube # 3; CSF Xanthrochromic No xanthochromia; Color CSF Colorless; Red Blood Cell CSF Manual 1.1 (0-); White Blood Cell CSF Manual 0 (0-5)
== END 2023-10-24 16:47 | disposition home or self-care (01) ==
LOC: ED 17:01 → 2E 17:01 → SUATTDRO 20:38 → 2E 23:39
DX: E87.6 Hypokalemia; Z23 Encounter for immunization; Z79.3 Long term (current) use of hormonal contraceptives; Z79.899 Other long term (current) drug therapy; I16.0 Hypertensive urgency; Z86.73 Personal history of transient ischemic attack (TIA), and cerebral infarction without residual deficits; Z88.1 Allergy status to other antibiotic agents